=== PATIENT | male | born 1930 | race Caucasian/White ===

== ENCOUNTER 2016-06-25 19:40 | Inpatient (IN) | payer OTHER ==
[~2016-06-25] VITALS: Ht 182.9 cm; Wt 55.5 kg
--- NOTE | ~2016-06-25 | 2DMMODE ---
[facility] [place] [address] 2 D/M-MODE ECHOCARDIOGRAM Name: SHANNON BROUSSARD Katherin Room #: 439-P [facility] IN ..#: [id number] Admission: 06/25/16 Attend Phys: Tommy Romeo MD Discharge: Date of : 32 Date of Service: 06/26/16 0921 Report #: [id number] THIS REPORT FOR: //name// Transthoracic Echocardiography Ordering physician: Tuan Jon Referring physician: MD Quentin Valle Omer F. 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 Hx: CABG, [place], Pacemaker, HLP, cardiomyopathy BP: 103 / HR: 61bpm Height: 72in Weight: 126.7lb 52 Study data: M-mode, complete 2D, complete spectral Doppler, and color Doppler. Location: Bedside. Routine. Image quality was adequate. The study was technically difficultdue to thin body habitus. Low parasternal window. 2D measurements Normal Normal LVID ED 51.1mm 36-57 IVS ED 9.6mm 6-11 LVID ES 48.7mm 23-40 LVPW ED 9.2mm 6-11 LA volume 57ml/m2 16-28 AoRoot diam 32.7mm 21-37 index ED LVOT diameter 20mm 18-23 Findings: Left ventricle: The cavity size was normal. Wall thickness was normal. Systolic function was severely reduced. The estimated ejection fraction was in the range of 20% to 25%. Right ventricle: The cavity size was moderately to severely dilated. Systolic function was reduced. Right atrium: The atrium was severely dilated. Pacer wire or catheter noted in right atrium. Left atrium: The atrium was severely dilated. Volume index: 57ml/m2 (S). Aortic valve: Mildly sclerotic leaflets. Doppler: There [facility] [address] [place] [address] 2 D/M-MODE ECHOCARDIOGRAM Name: SHANNON BROUSSARD Room #: 439-P ADM IN M.R.#: [id number] Admission: 06/25/16 Attend Phys: Tommy Romeo MD Discharge: Date of : 31 Date of Service: 06/26/16 0921 Report #: [id number] was no stenosis. Mild regurgitation. Peak velocity: 75.6cm/s (S). Mitral valve: Mildly thickened leaflets . Doppler: There was no evidence for stenosis. Moderate regurgitation. Peak E-wave velocity: 63.9cm/s. Tricuspid valve: Structurally normal valve. Doppler: There was no evidence for stenosis. Severe regurgitation. Regurgitant peak velocity: 253cm/s. Peak RV-RA gradient: 26mm Hg (S). Pulmonic valve: Structurally normal valve. Doppler: There was no evidence for stenosis. Trivial regurgitation. Pericardium: There was no pericardial effusion. Pleura: There was a right pleural effusion. There was a left pleural effusion. Aorta: Aortic root: The aortic root was normal in size. Pulmonary artery: Systolic pressure was estimated to be 41mm Hg. Diastolic function: The study is not technically sufficient to allow evaluation of LV diastolic function. Systemic veins: Inferior vena cava: The vessel was severely dilated; respirophasic changes in dimension were absent. Conclusions 1. Left ventricle: The cavity size was normal. Wall thickness was normal. Systolic function was severely reduced. The estimated ejection fraction was in the range of 20% to 25%. 2. Right atrium: The atrium was severely dilated. 3. Left atrium: The atrium was severely dilated. 4. Aortic valve: Mildly sclerotic leaflets. Mild regurgitation. 5. Mitral valve: Mildly thickened leaflets . Moderate regurgitation. 6. Pulmonic valve: Trivial regurgitation. 7. Tricuspid valve: Severe regurgitation. 8. Pericardium, extracardiac: There was a right pleural effusion. There was a left pleural effusion. [facility] [address] [place] [address] 2 D/M-MODE ECHOCARDIOGRAM Name: SHANNON BROUSSARD Room #: 439-P [facility] IN .R.#: [id number] Admission: 06/25/16 Attend Phys: Tommy Romeo MD Discharge: Date of : 31 Date of Service: 06/26/16920 Report #: [id number] 9. Pulmonary arteries: Systolic pressure was estimated to be 41mm Hg. <ELECTRONICALLY SIGNED> By: Evan Dee MD 06/26/16 1045 44 Evan Dee MD /jayden
--- NOTE | ~2016-06-25 | HC ---
[facility] [place] [address] CONSULTATION Name: SHANNON BROUSSARD Katherin Room #: 439-P [facility] IN M.R.#: [id number] Admission: 06/25/16 Attend Phys: Tommy Romeo MD Discharge: 06/30/16 Date of : 31 Report #: [id number] THIS REPORT FOR: //name// CC: Jesse Casey MD [facility] Quentin Fatima DO Tommy Carlos MD DATE OF SERVICE: 06/26/2016 REFERRING PROVIDER: Ernie Carlos M.D. REASON FOR CONSULTATION: Shortness of breath. CHIEF COMPLAINT: Dyspnea. HISTORY OF PRESENT ILLNESS: Our group was asked to see the patient in consultation while hospitalized at [facility]. He had been presented to our Emergency Department with complaints of increasing shortness of breath and generalized weakness. Denied any cough, congestion or wheezing. No known past pulmonary history; although, has a remote history of tobacco use, quitting in the early 1980s. He has significant underlying cardiac disease with a cardiomyopathy, ejection fraction 25%. He became less and less functional, became more and more dyspneic and weak with any activity, and this prompted a visit to the Emergency Room where imaging studies including ventilation perfusion scan revealed low probability for PE. There was, however, some heterogeneous perfusion which suggested underlying obstructive lung disease and a moderate area of decreased perfusion over the lateral right chest that was somewhat of a mismatch to pulmonary findings. A lower extremity venous Doppler was performed, which was negative. Echocardiogram is on ongoing at the time of this dictation. Currently, the patient is comfortable in bed, has noticed some ongoing weight loss; otherwise, without complaints except as described. ALLERGIES: Include HEPARIN. PAST MEDICAL HISTORY: 1. Underlying coronary artery disease. 2. History of ischemic cardiomyopathy. 3. Chronic thrombocytopenia. 4. Chronic kidney insufficiency, level 3 by history. 5. History of mitral regurgitation. PAST SURGICAL HISTORY: Includes: 1. Coronary artery bypass grafting in 1987. [facility] [address] [address] CONSULTATION Name: BOBOSHANNON Room #: 439-P [facility] IN [facility].#: [id number] Admission: 06/25/16 Attend Phys: Tommy Romeo MD Discharge: 06/30/16 Date of : 31 Report #: [id number] 2. Lumbar spinal surgery. 3. 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 4. History of AICD placement. 5. History of coronary and renal stents. OUTPATIENT MEDICATIONS: Include carvedilol, spironolactone, aspirin, Tylenol, Lasix and Colace. SOCIAL HISTORY: The patient is an ex-smoker, quitting in the . No significant alcohol consumption. Currently retired. FAMILY HISTORY: Significant for her father had of pneumonia. Mother lived into her 80s and of her age-related diseases. REVIEW OF SYSTEMS: Rest of 12-point review of systems negative except for diminished appetite and weight loss. PHYSICAL EXAMINATION: VITAL SIGNS: Afebrile, pulse 60s, respiratory rate 18, blood pressure 102/59 and oxygen saturation 94% on 2 liters. GENERAL: This is a pleasant, thin, elderly male, in no distress. EARS, NOSE AND THROAT: Clear oropharynx. Mallampati 1 airway. NECK: Supple, no lymphadenopathy. Jugular veins were not distended. LUNGS: Diminished with minimal inspiratory crackles, no wheezes noted. CARDIOVASCULAR: Heart was regular. Could not appreciate any murmurs. ABDOMEN: Soft, flat, nontender, no masses. EXTREMITIES: Warm, 2+ pulses, no edema. MUSCULOSKELETAL: Significant muscular atrophy noted. LABORATORY DATA: Sodium 137, potassium 5.0, chloride 101, bicarbonate 26, BUN 54, creatinine 1.8 and glucose 103. Troponin less than 0.04. ProBNP was 25,526. White blood cell count 5000, hemoglobin 14, hematocrit 43 and platelet count 54. Arterial blood gas done on 2 liters revealed pH 7.43, pCO2 of 32, pO2 of 94 and bicarbonate 21. Chest x-ray revealed some hyperinflation consistent with COPD and some scattered mild chronic fibrotic changes. IMPRESSION: 1. Ylpfg-km-hnqocvd systolic congestive heart failure, likely accounting for shortness of breath. 2. Probable underlying chronic obstructive pulmonary disease, but not requiring any inhaled therapy or supplemental oxygen in the past, and likely not a big contributor to current complaints, nothing for an acute exacerbation. 3. Chronic thrombocytopenia. 4. Apparent cachexia. SUGGESTIONS: [address] [address] CONSULTATION Name: SHANNON BROUSSARD Room #: 439-P [facility] IN M.R.#: [id number] Admission: 06/25/16 Attend Phys: Tommy Romeo MD Discharge: 06/30/16 Date of : 31 Report #: [id number] 1. Nothing for pulmonary embolism on current workup, await echocardiogram to evaluate right ventricle; however, with negative lower extremity Dopplers and low probability V/Q scan, we will not pursue pulmonary embolism workup further at this time. 2. Cardiac workup management per Cardiology service. 3. No indication for bronchodilators at this time. 4. Titrate off supplemental oxygen. 5. We will follow along with you. 6. Consider followup PA and lateral chest x-ray when the patient is improved to get a better baseline study. Thank you for requesting our suggestions. <ELECTRONICALLY SIGNED> By: Emiliano Harmon MD 07/01/16 1508 1058 1312 Emiliano Harmon MD /nt
--- NOTE | ~2016-06-25 | EKG ---
[address] [place] [address] ELECTROCARDIOGRAM REPORT Name: SHANNON BROUSSARD Room #: 439-P ADM IN M.R.#: [id number] Admission: 06/25/16 Attend Phys: Ernie Carlos MD Discharge: Date of : 31 Report #: [id number] THIS REPORT FOR: //name// [facility] ED Test Date: 2016-06-25 Test Time: 20:38:34 Pat Name: SHANNON BROUSSARD Department: Room: 439 Gender: M [employer]: VIKY : 1930 Requested By: Tuan Jon Order Number: [id number] MD: Sav Rodas Measurements Intervals Watson Rate: 60 P: 0 NV: 67 QRS: -89 QRSD: 143 T: 102 QT: 498 QTc: 498 Interpretive Statements Ventricular-paced complexes No further analysis attempted due to paced rhythm No previous ECG available for comparison Electronically Signed On 06-26-2016 8:07:21 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
--- NOTE | ~2016-06-25 | H ---
[facility] [place] [address] HISTORY AND PHYSICAL Name: SHANNON BROUSSARD Room #: 439-P ADM IN M.R.#: [id number] Admission: 06/25/16 Attend Phys: Ernie Carlos MD Discharge: Date of : 31 Report #: [id number] THIS REPORT FOR: //name// CC: Jesse Carlos DATE OF SERVICE: 06/25/2016 ATTENDING PHYSICIAN: Ernie Carlos MD PRIMARY CARE PHYSICIAN: Dr. Quentin Fatima. CHIEF COMPLAINT: Shortness of breath, weakness. HISTORY OF PRESENT ILLNESS: The patient is an 86-year-old male with known systolic heart failure with an EF of 25%. He does have an AICD in place. He says he has been progressively weak for the last 3 months. This has been making it difficult for him to take care of himself at home, he does live alone. He has also had increasing dyspneic on exertion. He says he has been taking his diuretics as ordered. He denies any cough, denies any chest pain. Upon arrival to the ER, after ambulating, he was noted to have blue lips, cold hands and feet and took him an extended time to recover after activity. He has never required oxygen use at home. The patient really does not want answer many questions, prior records were reviewed. He is normally followed by Dr. Casey with cardiology. His last echo on file in 2012 showed an EF of 25% and moderate mitral insufficiency and moderate to severe tricuspid regurgitation. He is on Lasix and spironolactone at home, he says he has been taking his medications. At one point in the past, it was mentioned that his AICD battery had and he was refusing to have his generator changed. It looks like this eventually was done in September ____. He does report that he has had some recent diarrhea were he cannot quantify how much this was occurring. Upon arrival to the floor from the ER, the patient was assisted into the bathroom. He again became very dyspneic on exertion and required oxygen and breathing treatments. RN reported that his lips were blue during this episode. The patient is now resting in bed and is denying any complaints to me at this time. PAST MEDICAL HISTORY: Coronary artery disease with prior [place], hyperlipidemia, systolic heart failure with an EF of 25%, chronic thrombocytopenia, chronic kidney disease stage III, moderate mitral regurgitation. PAST SURGICAL HISTORY: CABG in 1987, lumbar surgery, left finger traumatic amputation, AICD placement with a battery change in September ____, bilateral renal stents, coronary stents. ALLERGIES: HEPARIN, UNKNOWN REACTION. [facility] [address] [place] [address] HISTORY AND PHYSICAL Name: BOBOSHANNON Room #: 439-P ADM IN M.R.#: [id number] Admission: 06/25/16 Attend Phys: Ernie Carlos MD Discharge: Date of : 31 Report #: [id number] HOME MEDICATIONS: Carvedilol 6.25 mg b.i.d., spironolactone 25 mg b.i.d., aspirin 81 mg daily, Tylenol p.r.n., Lasix 40 mg daily and Colace 100 mg at bedtime. SOCIAL HISTORY: The patient lives alone. He is an ex-smoker, having quit in 1979. He denies any alcohol or drug use. FAMILY HISTORY: Not pertinent to age. REVIEW OF SYSTEMS: A 12-point review of systems was reviewed with the patient, otherwise negative unless stated in the HPI. PHYSICAL EXAMINATION: GENERAL: This patient is an alert, cachectic appearing male in no acute distress. VITAL SIGNS: Temperature is 36.6, heart rate 87, respirations 20, blood pressure is 105/73, oxygen 95% on 2 liters O2. HEENT: PERRLA. Sclerae is nonicteric. Oral mucosa is pink and dry. NECK: Supple. There is moderate JVD noted. CARDIOVASCULAR: Normal S1, S2. No murmurs, rubs or gallops. RESPIRATORY: Breath sounds are clear in bilateral upper lobes. He is very diminished in all bases. Breathing is currently nonlabored at arrest. ABDOMEN: Flat, nontender, nondistended with positive bowel sounds. VASCULAR: 1+ bilateral ankle edema. Pedal pulses are 1+. His feet and hands are both very cool with delayed capillary refill and he does have some venous insufficiency, color changes to the left lower extremity. NEUROLOGIC: The patient is alert. He is oriented x 3. Speech is clear. He does answer questions appropriately and following commands. No focal weakness noted. LABORATORY DATA AND DIAGNOSTICS: WBC is 4.6, hemoglobin 14.1, platelets 54. Sodium 137, potassium 5.0, BUN 54, creatinine 1.8. Glucose is 103, bilirubin 1.2. LFTs are within normal limits. Troponins negative. D-dimer is 1.9, ____ lactate is 1.8 and BNP 25,526. Lipase is 254. Chest x-ray is negative. EKG showing a V paced rhythm and Doppler was negative. V/Q scan demonstrates diffused mottling suggesting underlying chronic pulmonary disease and there is single segmental or dual segment abnormality over the right upper lobe region, but this does not confirm to the usual segmental anatomy, overall these findings suggest a low probability for pulmonary embolic disease. ASSESSMENT AND PLAN: 1. Acute on chronic systolic heart failure. He does have significant elevated BNP and some edema in the lower extremities as well as severe dyspnea on exertion. He was given steroids in the ER. We will hold off on any further steroids since he is not bronchospastic or wheezing. We will add IV Lasix for [facility] [address] [place] [address] HISTORY AND PHYSICAL Name: SHANNON BROUSSARD Room #: 439-P ADM IN [facility]#: [id number] Admission: 06/25/16 Attend Phys: Ernie Carlos MD Discharge: Date of : 31 Report #: [id number] diuresis and monitor I and O. 2. Chronic kidney disease stage III. Creatinine is slightly above his baseline, his previous creatinine was 1.5 to 1.7 in September 2015. We will monitor renal function closely with the use of IV Lasix. 3. History of coronary artery disease with prior myocardial infarction, stents and coronary artery bypass graft. He is denying any chest pain and EKG shows V paced rhythm and no ischemic changes. We will check serial cardiac enzymes and add aspirin daily. 4. Deep venous thrombosis prophylaxis, placed sequential compression devices. We will continue to follow the patient closely throughout the hospitalization and make changes based on clinical status. <ELECTRONICALLY SIGNED> By: MICHAEL Busch 06/26/16 0714 [id number] [id number] MICHAEL Busch /davon
--- NOTE | ~2016-06-25 | HC ---
[facility] [place] [address] CONSULTATION Name: SHANNON BROUSSARD Katherin Room #: 439-P [facility] [place] .R.#: [id number] Admission: 06/25/16 Attend Phys: Tommy Romeo MD Discharge: 06/30/16 Date of : 31 Report #: [id number] THIS REPORT FOR: //name// CC: Jesse Romeo DATE OF SERVICE: 06/26/2016 DATE OF SERVICE: 06/26/2016 HISTORY OF PRESENT ILLNESS: The patient is an 86-year-old white male with a history of AICD with known systolic heart failure, who was admitted with increased weakness over the past 3 months. He was noted to have increased dyspnea on exertion. He had hqxmo-de-qqghuvt systolic heart failure and chronic kidney disease stage III. He does have generalized debilitation with weakness. We are seeing him in rehabilitation medicine consultation. PAST MEDICAL HISTORY: Includes coronary artery disease with prior [place], hyperlipidemia, systolic heart failure with an ejection fraction of 25%, chronic thrombocytopenia, chronic kidney disease stage III, moderate mitral regurgitation. PAST SURGICAL HISTORY: CABG in 1987, lumbar surgery. He had traumatic amputation of several fingers of the left hand, AICD placement with battery change in September, bilateral renal stents, coronary stents. ALLERGIES: HEPARIN unknown reaction. MEDICATIONS: Please see the full medication listing. SOCIAL HISTORY: Lives alone, house one floor ramp, did not utilize any gait aids, driving in the community. REVIEW OF SYSTEMS: No current complaints of chest pain, shortness of breath or abdominal discomfort. Notes that he had trauma to the left fingers while cutting wood with a chainsaw. PHYSICAL EXAMINATION: GENERAL: Thin 86-year-old white male in no obvious distress. VITAL SIGNS: Last recorded temperature is 97.7, pulse 60, respirations 18, blood pressure 102/59. NEUROLOGIC: He is alert, pleasant. He indicated he was interested in rehabilitation therapies, "I can do that at home." Facies are symmetric. Upper extremities, he does have the left hand amputations of the second, fourth and fifth digits with a flexion contracture of the left third digit both at the [facility] [address] [place] [address] CONSULTATION Name: SHANNON BROUSSARD Room #: 439-P [facility] [place] M.R.#: [id number] Admission: 06/25/16 Attend Phys: Tommy Romeo MD Discharge: 06/30/16 Date of : 31 Report #: [id number] and DIP joints. He does have reasonable to fair hoop maker machine of that left hand. Functional range of motion and strength of the right upper extremity. Lower extremities, no focal calf swelling with functional range of motion, strength is grade 4-/5. Tone appeared to be intact. No focal calf swelling. ASSESSMENT: An 86-year-old white male with the following problem list: 1. Generalized weakness and debilitation. 2. Wfbte-jr-ycjgtka systolic heart failure. 3. Chronic kidney disease stage 4. 4. Prior AICD. 5. Prior myocardial infarction with stents and coronary artery bypass grafting. PLAN: We will add physical therapy to work on functional mobility improving strength. We will also add occupational therapy. I am uncertain how cooperative, he is going to be, as he does not seem to be interested in any therapies, but we will try to work with him to try to assess his current function and help him to try to further improve his strength and endurance. He is hoping to go directly home and will need to see how he does. Insurance may need to be checked regarding rehab therapy options if warranted, pending how he does. We will follow along with you. Thank you for asking us to assist in this patient's care. <ELECTRONICALLY SIGNED> By: Aidan Qureshi MD 07/01/16 1617 1017 1053 Aidan Qureshi MD /nt
[~2016-06-25 19:40] MED LIST: ALBUTEROL2.5 MG/0.5 INH; ALDACTONE25 MG PO; ASPIR 8181 MG PO; ASPIRIN EC81 M1 PO; ATIVAN0.5 MG PO; CARVEDILOL12.5 MG PO; COREG CR20 MG PO; COREG6.25 MG PO; DEMADEX20 MG PO; DIGOXIN125 MCG PO; FUROSEMIDE 40 M40 M1 PO; KEFLEX250 MG PO; POTASSIUM20 PO; TYLENOL325 MG PO
[2016-06-25 19:41] VITALS: BP 105/73
[2016-06-25 20:35] LABS: ABG SAMPLE TYPE ARTERIAL; BE(vivo) -2.3 mmol/L (-2 to +3); LACTATE 2.63 mmol/L (0.5-2.0); O2(CT) 19.5 mL/dL (15.0-23.0); O2Hb 95.5 % (92.0-98.0); PO2 93.8 mmHg (80.0-100.0); pH 7.434 (7.360-7.450); sO2 97.5 % (92.0-98.0); tCO2 21.9 mmol/L (24.0-30.0)
[2016-06-25 20:36] LABS: STICK SITE R.BRACHIAL
[2016-06-25 20:38] LABS: EOSINOPHILS 1.2 % (0.0-3.0); RDW 17.7 % (10.5-14.5)
[2016-06-25 20:40] LABS: ABSOLUTE NEUTROPHILS 3.4 thou/uL (1.4-8.2); BASOPHILS 0.8 % (0.0-2.0); HEMATOCRIT 43.3 % (42.0-52.0); HEMOGLOBIN 14.1 gm/dL (14.0-18.0); LYMPHOCYTES 12.3 % (24.0-44.0); MCH 30.2 pg (26.0-34.0); MCHC 32.6 % (28.0-37.0); MCV 92.8 fL (80.0-100.0); PLATELET COUNT 54 thou/uL (150-400); POLYS 73.7 % (36.0-66.0); RBC 4.66 mil/uL (4.50-6.00); WBC 4.6 thou/uL (4.0-11.0)
[2016-06-25 20:41] LABS: MANUAL DIFF NO
[2016-06-25] MEDS ORDERED: LASIX 40 MG TAB40 M2 PO (20:41)
[2016-06-25] MEDS ORDERED: COLACE100 MG PO (20:41)
[2016-06-25 20:53] LABS: ANION GAP 10 mmol/L (7-16); BUN 54 mg/dL (7-18); CALCIUM 9.1 mg/dL (8.5-10.1); CHLORIDE 101 mmol/L (98-107); CO2 26 mmol/L (21-32); CREATININE 1.8 mg/dL (0.6-1.3); GLUCOSE 103 mg/dL (70-99); SODIUM 137 mmol/L (136-145)
[2016-06-25 21:02] LABS: ALBUMIN 3.7 g/dL (3.4-5.0); ALKALINE PHOSPHATASE 87 U/L (46-116); DIRECT BILIRUBIN 0.4 mg/dL (<0.1-0.3); NT-PRO BRAIN NAT PEPTIDE 25526 pg/mL (<300); SGOT 23 U/L (15-37); SGPT 14 U/L (30-65); TOTAL BILIRUBIN 1.2 mg/dL (<0.1-1.0); TOTAL PROTEIN 8.2 g/dL (6.4-8.2); TROPONIN-I < 0.04 ng/mL (<0.04-0.07)
[2016-06-26] VITALS (8 sets, daily range): BP systolic 86–144; BP diastolic 49–91
[2016-06-27 03:21] VITALS: BP 91/61
[2016-06-27 06:24] LABS: CALCIUM 8.5 mg/dL (8.5-10.1); MAGNESIUM 2.7 mg/dL (1.8-2.4); POTASSIUM 4.9 mmol/L (3.5-5.1)
[2016-06-27 08:00] VITALS: BP 98/59
[2016-06-27 12:00] VITALS: BP 93/67
[2016-06-27 16:00] VITALS: BP 98/63
[2016-06-27 20:00] VITALS: BP 121/42
[2016-06-27 21:33] VITALS: BP 100/60
[2016-06-28 04:00] VITALS: BP 103/66
[2016-06-28 08:00] VITALS: BP 101/67
[2016-06-28 12:00] VITALS: BP 98/58
[2016-06-28 13:51] LABS: WBC 3.4 thou/uL (4.0-11.0)
[2016-06-28 13:53] LABS: HEMATOCRIT 41.9 % (42.0-52.0); HEMOGLOBIN 13.5 gm/dL (14.0-18.0); MCH 29.9 pg (26.0-34.0); MCHC 32.3 % (28.0-37.0); MCV 92.5 fL (80.0-100.0); RBC 4.52 mil/uL (4.50-6.00); RDW 17.1 % (10.5-14.5)
[2016-06-28 14:01] LABS: MANUAL DIFF YES
[2016-06-28 14:03] LABS: CALCIUM 8.6 mg/dL (8.5-10.1); CREATININE 1.9 mg/dL (0.6-1.3); POTASSIUM 5.1 mmol/L (3.5-5.1)
[2016-06-28 14:40] LABS: ABSOLUTE NEUTROPHILS 2.9 thou/uL (1.4-8.2); ANISOCYTOSIS 1+; LARGE PLATELETS FEW; TOTAL CELL COUNT 100
[2016-06-28 14:42] LABS: PLATELET COUNT 28 thou/uL (150-400)
[2016-06-28 16:00] VITALS: BP 99/65
[2016-06-28 19:45] VITALS: BP 107/57
[2016-06-29 04:38] VITALS: BP 98/72
[2016-06-29 05:21] LABS: HEMATOCRIT 40.5 % (42.0-52.0); HEMOGLOBIN 13.2 gm/dL (14.0-18.0); MCHC 32.6 % (28.0-37.0); RBC 4.4 mil/uL (4.50-6.00); RDW 17.6 % (10.5-14.5); WBC 3.2 thou/uL (4.0-11.0)
[2016-06-29 08:00] VITALS: BP 108/69
[2016-06-29 12:00] VITALS: BP 96/54
[2016-06-29 16:00] VITALS: BP 96/55
[2016-06-29 21:41] VITALS: BP 103/59
[2016-06-30 05:27] LABS: HEMATOCRIT 41.1 % (42.0-52.0); HEMOGLOBIN 13.2 gm/dL (14.0-18.0); MCH 29.9 pg (26.0-34.0); MCHC 32.1 % (28.0-37.0); MCV 93.1 fL (80.0-100.0); RBC 4.42 mil/uL (4.50-6.00); RDW 17.7 % (10.5-14.5)
[2016-06-30 06:07] LABS: CALCIUM 8.7 mg/dL (8.5-10.1); POTASSIUM 4.6 mmol/L (3.5-5.1)
[2016-06-30 06:10] VITALS: BP 114/68
[2016-06-30 08:00] VITALS: BP 111/67
[2016-06-30 12:00] VITALS: BP 105/75
[2016-06-30 14:00] VITALS: BP 105/75
[2016-06-30] MEDS ORDERED: DEMADEX 2020 MG/1 TA PO (15:04)
== END 2016-06-30 16:17 | disposition home health service (06) | DRG 291 ==
LOC: ER 19:40 → 4S 23:28 → EROBS 23:28 → 4S 06-26 00:39
PROVIDERS: Hospitalist; Nurse Practitioner; Nurse Practitioner Acute Care
DX: I50.23 Acute on chronic systolic (congestive) heart failure (principal); J96.20 Acute and chronic respiratory failure, unspecified whether with hypoxia or hypercapnia; E43 Unspecified severe protein-calorie malnutrition; J96.21 Acute and chronic respiratory failure with hypoxia; I13.0 Hypertensive heart and chronic kidney disease with heart failure and stage 1 through stage 4 chronic kidney disease, or unspecified chronic kidney disease; N18.4 Chronic kidney disease, stage 4 (severe); J44.1 Chronic obstructive pulmonary disease with (acute) exacerbation; J90 Pleural effusion, not elsewhere classified; I34.0 Nonrheumatic mitral (valve) insufficiency; Z60.2 Problems related to living alone; E78.00 Pure hypercholesterolemia, unspecified; I25.10 Atherosclerotic heart disease of native coronary artery without angina pectoris; I48.91 Unspecified atrial fibrillation; I70.1 Atherosclerosis of renal artery; E78.5 Hyperlipidemia, unspecified; I25.5 Ischemic cardiomyopathy; D69.6 Thrombocytopenia, unspecified; Z95.1 Presence of aortocoronary bypass graft; Z79.01 Long term (current) use of anticoagulants; Z79.899 Other long term (current) drug therapy; Z87.891 Personal history of nicotine dependence; I25.2 Old myocardial infarction; Z95.810 Presence of automatic (implantable) cardiac defibrillator; Z89.022 Acquired absence of left finger(s); Z95.5 Presence of coronary angioplasty implant and graft; Z83.6 Family history of other diseases of the respiratory system
CPT/HCPCS: 10100